=== PATIENT | male | born 1975 | race Caucasian/White ===

== ENCOUNTER 2022-03-06 20:45 | Emergency (ER) | payer BC ==
[~2022-03-06] VITALS: Ht 180.3 cm; Wt 98.0 kg
[~2022-03-06 20:45] MED LIST: NAPR-1180 PO
[2022-03-07 00:37] VITALS: BP 129/75
== END 2022-03-07 00:54 | disposition home or self-care (01) ==
LOC: EDH 20:45
DX: R03.0 Elevated blood-pressure reading, without diagnosis of hypertension (principal); Z79.1 Long term (current) use of non-steroidal anti-inflammatories (NSAID)
CPT/HCPCS: 99281